=== PATIENT | male | born 1945 | race Two or more races ===

== ENCOUNTER → 2019-02-20 | Outpatient (CLI) | payer MEDICARE ==
--- NOTE | 2019-02-20 10:49 | RAD ---
MR#: [id number] Date of Study: 02/20/2019 Ordering Physician: CANDI BURRELL, Referring Physician: CANDI BURRELL, Tech: Tanisha Onofre RDMS, RVT, RTR APPROVED REPORT Patient Location: OUT-PATIENT Laterality:Bilateral Indications Bruit Grayscale images of the bilateral carotid arteries demonstrate mild soft plaque without any significa nt high-grade stenosis. Spectral waveforms and color Doppler are within normal limits. Overall ICA to CCA ratios are within n ormal limits. No focal obstruction identified. Critical Notification Critical Value: No <Conclusion> No significant bilateral carotid occlusive disease. Signed by : Candi Burrell, Electronically Approved : 02/20/2019 10:49:17
--- NOTE | 2019-02-20 10:50 | RAD ---
MR#: [id number] Date of Study: 02/20/2019 Ordering Physician: CANDI BURRELL, Referring Physician: CANDI BURRELL, Tech: Tanisha Onofre RDMS, RVT, RTR APPROVED REPORT Patient Location: OUT-PATIENT Indications CAD Risk Factors Cardiac Disease Technically limited images but grossly the aorta has mild diffuse atherosclerosis. No significant aneurysmal dilatation is noted. Maximal transverse dimensions are approximately 1.8 cm. Spectral waveforms and color Doppler in the bilateral common iliacs and aorta a is within normal limi ts. Critical Notification Critical Value: No <Conclusion> No significant aortic aneurysm noted. Signed by : Candi Burrell, Electronically Approved : 02/20/2019 10:50:24
--- NOTE | 2019-02-20 11:07 | CARD ---
MR#: [id number] Date of Study: 02/20/2019 Ordering Physician: CANDI BURRELL, Referring Physician: CANDI BURRELL, Tech: Seema Lomeli MISHA APPROVED REPORT EXAM: Two-dimensional and M-mode echocardiogram with Doppler and color Doppler. Other Information Quality : Technically LimitedHR: 70bpm Rhythm : NSRTechnically limited study due to body habitus. INDICATION CAD 2D DIMENSIONS Left Atrium(2D)4.0 (1.6-4.0cm)IVSd1.2 (0.7-1.1cm) Aortic Root(2D)3.6 (2.0-3.7cm)LVDd4.2 (3.9-5.9cm) LVOT Diameter2.3 (1.8-2.4cm)PWd1.1 (0.7-1.1cm) LVDs3.0 (2.5-4.0cm)FS (%) 28.6 % SV44.1 mlLVEF(%)55.5 (>50%) M-Mode DIMENSIONS Left Atrium(MM)3.54 (2.5-4.0cm)Aortic Root3.98 (2.2-3.7cm) Aortic Valve AoV Peak Franklin.120.6cm/sAoV VTI26.0cm AO Peak GR.5.8mmHgLVOT Peak Franklin.94.2cm/s LVOT VTI 23.99cmAO Mean GR.4mmHg JUNAID (VMAX)3.66wh5MJZ (VTI)3.85cm2 Mitral Valve MV E Zclpsstm15.7cm/sMV DECEL RHYR102jm MV A Pbeucari49.3cm/sE/A Ratio0.9 MV A Kpbaqjeq16ov Pulmonary Valve PV Peak Gneoxwro457.8cm/sPV Peak Grad.5mmHg Tricuspid Valve TR P. Fgsfuqwy124up/sRAP YPIRVXUY7csBr TR Peak Gr.03knZwTLLZ81jeLh LEFT VENTRICLE The left ventricle is normal size. There is mild concentric left ventricular hypertrophy. Apical wall appears hypokinetic. The Ejection Fraction is 55-60%. Transmitral Doppler flow pattern is Grade I-ab normal relaxation pattern. RIGHT VENTRICLE The right ventricle is normal size. There is normal right ventricular wall thickness. The right ventr icular systolic function is normal. ATRIA The left atrium is mildly dilated. The right atrium size is normal. The interatrial septum is intact with no evidence for an atrial septal defect or patent foramen ovale as noted on 2-D or Doppler imagi ng. AORTIC VALVE The aortic valve is trileaflet. The aortic valve is mildly calcified. Doppler and Color Flow revealed no significant aortic regurgitation. There is no significant aortic valvular stenosis. There is no a ortic valvular vegetation. MITRAL VALVE Mitral annular calcification is mild. There is no evidence of mitral valve prolapse. There is no mitr al valve stenosis. Doppler and Color-flow revealed trace mitral regurgitation. TRICUSPID VALVE The tricuspid valve is normal in structure and function. Doppler and Color Flow revealed trace tricus pid regurgitation. The PA pressure was estimated at 26 mmHg. There is no tricuspid valve prolapse or vegetation. There is no tricuspid valve stenosis. PULMONIC VALVE The pulmonic valve is not well visualized. GREAT VESSELS The aortic root is mildly enlarged at 3.6cm. The ascending aorta is Mildly dilated at 3.9cm. The IVC is normal in size and collapses >50% with inspiration. PERICARDIAL EFFUSION There is no evidence of significant pericardial effusion. Critical Notification Critical Value: No <Conclusion> Apical wall appears hypokinetic. The Ejection Fraction is 55-60%. Transmitral Doppler flow pattern is Grade I-abnormal relaxation pattern. The left atrium is mildly dilated. Trace mitral regurgitation. Trace tricuspid regurgitation. The PA pressure was estimated at 26 mmHg. There is no evidence of significant pericardial effusion. Signed by : Fernando Carver, Electronically Approved : 02/20/2019 11:07:03
== END | disposition home or self-care (01) ==
LOC: US 08:23
PROVIDERS: ATTEND Internal Medicine Cardiovascular Disease
DX: I08.0 Rheumatic disorders of both mitral and aortic valves (principal); I77.819 Aortic ectasia, unspecified site; I25.10 Atherosclerotic heart disease of native coronary artery without angina pectoris; I70.0 Atherosclerosis of aorta; R09.89 Other specified symptoms and signs involving the circulatory and respiratory systems
CPT/HCPCS: 93306; 93880; 93978

== ENCOUNTER → 2019-12-14 | Outpatient (CLI) | payer MEDICARE ==
[2019-12-14 09:50] LABS: ALBUMIN 3.9 g/dL (3.4-5.0); ALBUMIN/GLOBULIN RATIO 1.1 (1.0-1.7); CALCIUM 9.7 mg/dL (8.5-10.1); CREATININE 1.3 mg/dL (0.7-1.3); GFR 53.7; POTASSIUM 3.9 mmol/L (3.5-5.1); TOTAL BILIRUBIN 0.4 mg/dL (0.2-1.0); TOTAL PROTEIN 7.4 g/dL (6.4-8.2)
[2019-12-14 09:54] LABS: BASO % 0 % (0-3); EOS # 0.5 x10^3/uL (0.0-0.7); EOS % 7 % (0-3); HEMATOCRIT 38.6 % (39.0-53.0); LYMPH # 1.7 x10^3/uL (1.0-4.8); LYMPH % 23 % (24-48); MEAN CORPUSCULAR HEMOGLOBIN 30 pg (25-35); MEAN CORPUSCULAR HGB CONC 34 g/dL (31-37); MEAN CORPUSCULAR VOLUME 88 fL (79-100); MONO # 0.5 x10^3/uL (0.0-1.1); MONO % 6 % (0-9); NEUT # 4.7 x10^3uL (1.8-7.7); NEUT % 64 % (31-73); PLATELET COUNT 241 x10^3/uL (140-400); RED CELL DISTRIBUTION WIDTH 14.1 % (11.5-14.5); WHITE BLOOD COUNT 7.4 x10^3/uL (4.0-11.0)
[2019-12-14 15:00] LABS: THYROID STIM HORMONE (TSH) 2.614 uIU/mL (0.358-3.740)
[2019-12-15 00:06] LABS: HEMOGLOBIN A1C 6.8 % (4.8-5.6)
== END ==
LOC: LAB 08:49
PROVIDERS: ATTEND Family Medicine
DX: E11.9 Type 2 diabetes mellitus without complications (principal); I10 Essential (primary) hypertension; E78.5 Hyperlipidemia, unspecified
CPT/HCPCS: 36415; 80053; 80061; 83036; 84443; 85025

== ENCOUNTER 2020-11-01 08:41 | Observation (INO) | payer MEDICARE ==
[~2020-11-01] VITALS: Ht 172.7 cm; Wt 105.0 kg
--- NOTE | 2020-11-01 08:58 | PHYS DOC ---
Adult General HPI HPI Patient is a 75-year-old male with a known past with a history of diabetes and coronary artery disease status post 2 times coronary artery stents now presents emergency department complaint of new onset of chest pain. Patient states that approximately 4 hours prior to arrival he started having left anterior chest p ain which radiated into the left shoulder left arm without radiation to left neck. Has not been associated with any nausea, vomiting, fever, chills, cough, dizziness or lightheadedness. Denies any noted aggravating alleviating factors. States he took some nitro when he woke up this morning which improved his symptoms but has then returned. Review of Systems Review of Systems Constitutional: Denies fever or chills [] Eyes: Denies change in visual acuity, redness, or eye pain [] HENT: Denies nasal congestion or sore throat [] Respiratory: Denies cough or shortness of breath [] Cardiovascular: No additional information not addressed in HPI [] GI: Denies abdominal pain, nausea, vomiting, bloody stools or diarrhea [] : Denies dysuria or hematuria [] Musculoskeletal: Denies back pain or joint pain [] Integument: Denies rash or skin lesions [] Neurologic: Denies headache, focal weakness or sensory changes [] Endocrine: Denies polyuria or polydipsia [] All other systems were reviewed and found to be within normal limits, except as documented in this note. Physical Exam Physical Exam Constitutional: Well developed, well nourished, no acute distress, non-toxic appearance. [] HENT: Normocephalic, atraumatic, bilateral external ears normal, oropharynx moist, no oral exudates, nose normal. [] Eyes: PERRLA, EOMI, conjunctiva normal, no discharge. [] Neck: Normal range of motion, no tenderness, supple, no stridor. [] Cardiovascular:Heart rate regular rhythm, no murmur [] Lungs & Thorax: Bilateral breath sounds clear to auscultation [] Abdomen: Bowel sounds normal, soft, no tenderness, no masses, no pulsatile masses. [] Skin: Warm, dry, no erythema, no rash. [] Back: No tenderness, no CVA tenderness. [] Extremities: No tenderness, no cyanosis, no clubbing, ROM intact, no edema. [] Neurologic: Alert and oriented X 3, normal motor function, normal sensory function, no focal deficits noted. [] Psychologic: Affect normal, judgement normal, mood normal. [] EKG EKG [] Radiology/Procedures Radiology/Procedures [] Heart Score Risk Factors: Risk Factors: DM, Current or recent (<one month) smoker, HTN, HLP, family history of CAD, obesity. Risk Scores: Risk Factors: DM, Current or recent (<one month) smoker, HTN, HLP, family history of CAD, obesity. Course & Med Decision Making Course & Med Decision Making Pertinent Labs and Imaging studies reviewed. (See chart for details) 75-year-old male presented emergency department with left anterior chest pain which is raise concern for an acute coronary artery syndrome. Differential also includes costochondritis, pneumonia, PE. At this time will obtain an ACS work- up and reevaluate. Initial work-up negative for any acute ischemic pathology. At this time will ad alissa for observation Dragon Disclaimer Dragon Disclaimer This electronic medical record was generated, in whole or in part, using a voice recognition dictation system. Departure Departure: Impression: Primary Impression: Chest pain Disposition: ADMITTED INPT THIS HOSP Condition: GOOD Referrals: LETA DUARTE MD (PCP) RICHY MARCUS MD Nov 01, 2020 08:58
[2020-11-01] MEDS ORDERED: ASPIRIN CHEWABLE 81 MG TABLET. PO ONE (09:00)
--- NOTE | 2020-11-01 09:00 | EKG ---
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
--- NOTE | 2020-11-01 09:14 | RAD ---
EXAMINATION: XR CHEST 1V CLINICAL HISTORY: Chest pain EXAM DATE/TIME: 11/01/2020 8:59 AM COMPARISON: None FINDINGS: Lines, Tubes, and Devices: None. Cardiomediastinal Silhouette: Normal heart size. Lungs and Pleura: Pulmonary hypoexpansion without evidence of focal airspace consolidation or pleural effusion. Pulmonary vasculature unremarkable. Bones and Soft Tissues: Degenerative changes of the thoracic spine. IMPRESSION: No evidence of acute cardiopulmonary abnormality. Electronically signed by: Oleg Singh DO (11/01/2020 9:12 AM) [facility]
[2020-11-01 09:29] LABS: BASO % 1 % (0-3); EOS # 0.6 x10^3/uL (0.0-0.7); EOS % 8 % (0-3); HEMATOCRIT 39.3 % (39.0-53.0); LYMPH # 1.9 x10^3/uL (1.0-4.8); LYMPH % 24 % (24-48); MEAN CORPUSCULAR HEMOGLOBIN 30 pg (25-35); MEAN CORPUSCULAR HGB CONC 33 g/dL (31-37); MEAN CORPUSCULAR VOLUME 90 fL (79-100); MONO # 0.6 x10^3/uL (0.0-1.1); MONO % 7 % (0-9); NEUT # 4.7 x10^3uL (1.8-7.7); NEUT % 60 % (31-73); PLATELET COUNT 233 x10^3/uL (140-400); RED BLOOD COUNT 4.36 x10^6/uL (4.30-5.70); RED CELL DISTRIBUTION WIDTH 13.8 % (11.5-14.5); WHITE BLOOD COUNT 7.8 x10^3/uL (4.0-11.0)
[2020-11-01 09:31] LABS: CALCIUM 9.6 mg/dL (8.5-10.1); CREATININE 1.3 mg/dL (0.7-1.3); GFR 53.5; POTASSIUM 4.3 mmol/L (3.5-5.1)
[2020-11-01 09:44] LABS: ALBUMIN 3.9 g/dL (3.4-5.0); ALBUMIN/GLOBULIN RATIO 1.1 (1.0-1.7); TOTAL BILIRUBIN 0.3 mg/dL (0.2-1.0); TOTAL PROTEIN 7.5 g/dL (6.4-8.2)
[2020-11-01] MEDS ORDERED: ONDANSETRON PF 4 MG/2 ML VIAL. IVP PRN (10:45)
[2020-11-01] MEDS ORDERED: MORPHINE SULFATE 4 MG/ML DISP.SYRIN. IVP PRN (10:45)
[2020-11-01] MEDS ORDERED: CARV3.1230 PO (12:38)
[2020-11-01] MEDS ORDERED: METF10007 PO (12:38)
[2020-11-01] MEDS ORDERED: ATOR20TA PO (12:38)
[2020-11-01] MEDS ORDERED: GLIM4TAB8 PO (12:38)
[2020-11-01] MEDS ORDERED: ASPI-630 PO (12:38)
[2020-11-01 13:00] VITALS: BP 152/80
[2020-11-01] MEDS ORDERED: HEPARIN for IV BOLUS 10,000 UNIT/10 ML VIAL. IV ONE (13:00)
[2020-11-01] MEDS ORDERED: HEPARIN for IV BOLUS 10,000 UNIT/10 ML VIAL. IV PRN (13:00)
[2020-11-01 14:00] VITALS: BP 165/84
--- NOTE | 2020-11-01 14:29 | NUR ---
Patient admitted to ICU Room 5 for chest pain. Patient admitted with all belongings, ambulated from ER stretcher to bed without assistance. Patient's vital signs stable upon admission. Home medications reconciled with Dr. Vallejo over the phone. Dr. Ray called for cardiology consult. Received orders for Heparin drip per protocol and will trend troponin lab values. Will continue to critically monitor patient.
[2020-11-01] MEDS: HEPARIN 25,000UTS/250ML PREMIX 250 ML IV PRN (14:42)
--- NOTE | 2020-11-01 14:50 | NUR ---
Heparin drip started per Cardiovascular protocol. Drip started at 12 units/kg/hr (12.6 mL/hr). Initial PTT 28. Will draw PTT again at 2100 and repeat Q6 hours until stable. Will continue to critically monitor. Initial bolus of 4000 units given per Cardiovascular protocol.
[2020-11-01] MEDS ORDERED: SITA100T PO ×2 (14:53→16:09)
[2020-11-01 15:00] VITALS: BP 165/77
[2020-11-01 16:00] VITALS: BP 146/77
[2020-11-01] MEDS: metFORMIN 500 MG TABLET PO SCH (17:00)
[2020-11-01 19:00] VITALS: BP 144/86
[2020-11-01 23:00] VITALS: BP 135/60
[2020-11-02 03:22] VITALS: BP 136/62
[2020-11-02 06:32] LABS: BASO % 0 % (0-3); EOS # 0.5 x10^3/uL (0.0-0.7); EOS % 7 % (0-3); HEMATOCRIT 36.6 % (39.0-53.0); HEMOGLOBIN 12.1 g/dL (13.0-17.5); LYMPH # 1.8 x10^3/uL (1.0-4.8); LYMPH % 23 % (24-48); MEAN CORPUSCULAR HEMOGLOBIN 30 pg (25-35); MEAN CORPUSCULAR HGB CONC 33 g/dL (31-37); MEAN CORPUSCULAR VOLUME 90 fL (79-100); MONO # 0.5 x10^3/uL (0.0-1.1); MONO % 6 % (0-9); NEUT % 63 % (31-73); PLATELET COUNT 219 x10^3/uL (140-400); RED BLOOD COUNT 4.09 x10^6/uL (4.30-5.70); RED CELL DISTRIBUTION WIDTH 14.1 % (11.5-14.5); WHITE BLOOD COUNT 7.9 x10^3/uL (4.0-11.0)
[2020-11-02 06:45] LABS: CALCIUM 9.1 mg/dL (8.5-10.1); CREATININE 1.3 mg/dL (0.7-1.3); GFR 53.5; POTASSIUM 3.7 mmol/L (3.5-5.1)
[2020-11-02 07:00] VITALS: BP 132/65
[2020-11-02] MEDS: metFORMIN 500 MG TABLET PO SCH (07:46)
[2020-11-02] MEDS: HEPARIN 25,000UTS/250ML PREMIX 250 ML IV PRN (07:47)
[2020-11-02] MEDS ORDERED: CARVEDILOL 3.125 MG TABLET PO SCH (09:00)
[2020-11-02] MEDS ORDERED: ASPIRIN CHEWABLE 81 MG TABLET. PO SCH (09:00)
[2020-11-02] MEDS ORDERED: SITAGLIPTIN PHOSPHATE 100 MG PO SCH (09:00)
[2020-11-02] MEDS ORDERED: ATORVASTATIN CALCIUM 20 MG TABLET PO SCH (09:00)
[2020-11-02] MEDS ORDERED: GLIMEPIRIDE 2 MG TABLET PO SCH (09:00)
--- NOTE | 2020-11-02 09:15 | HP ---
ADMIT DATE: 11/01/2020 ATTENDING PHYSICIAN: Dr. Chisholm. CHIEF COMPLAINT: Chest pain. HISTORY OF PRESENT ILLNESS: The patient is a 75-year-old gentleman admitted through the ED with new onset of nonexertional chest pain 4 hours prior to arrival. He started having left anterior chest wall pain radiating to the left shoulder and left neck. No associated nausea, vomiting, fever or COVID exposure. It was nonexertional. He took a nitroglycerin and it helped. In the ED, the workup was fairly unremarkable. EKG nondiagnostic. Chest x-ray was clear and the first set of cardiac enzymes was negative. He has had a known history of coronary artery disease with 2 coronary stents done at [facility] several years ago. I do not have the exact detail. He is therefore admitted. Dr. Macdonald is his operator maintainer, Dr. Ray has been consulted. He is here for further management as well as evaluation and serial cardiac enzymes. PAST MEDICAL HISTORY: Significant for the known coronary artery disease. He has hypertension. He has obesity and type 2 diabetes. CURRENT MEDICINES: Reviewed. He takes nitroglycerin p.r.n., aspirin, Lipitor, Coreg, glimepiride, metformin and Januvia. ALLERGIES: He has no known drug allergies. SOCIAL HISTORY: He is a nonsmoker, nondrinker. FAMILY HISTORY: Significant for colon cancer and leukemia in his parents. Exact diagnosis unclear. REVIEW OF SYSTEMS: Unremarkable for any COVID exposure, fevers, chills, palpitations. All other systems reviewed and turned to be negative. PHYSICAL EXAMINATION: GENERAL: When I saw him, this is a very pleasant, middle-aged gentleman. INITIAL VITAL SIGNS: In the ED showed a blood pressure of 146/77, pulse 87 and regular. He was afebrile, oxygen saturation 92% on room air. HEENT: Head is without trauma. Pupils are reactive. Sclerae nonicteric. Oropharynx clear. NECK: Supple, no bruits. LUNGS: Clear. CARDIOVASCULAR: Showed regular heart tones. ABDOMEN: Obese, protuberant. No organomegaly. Bowel sounds are normoactive. EXTREMITIES: Show no cyanosis or edema. NEUROLOGIC: Focally intact. Speech is fluent. Metal Drawer intact. SKIN: Warm and dry. PERTINENT LABORATORY STUDIES: Hemoglobin 13.0 g/dL, white count 7800. Nonfasting blood sugar 235. The first cardiac enzymes were negative for coronary ischemia. Sodium was 139 mEq/L, potassium 4.3, creatinine is 1.3 mg/dL. ASSESSMENT: 1. A 75-year-old gentleman with atypical chest pain, coronary ischemia to be ruled out. 2. Known coronary artery disease with 2 previous stents at outside hospital. 3. Type 2 diabetes mellitus. 4. Hypertension. 5. Hyperlipidemia. PLAN: 1. Admit to the Intensive Care Unit. 2. Cardiology consultation, Dr. Macdonald submitted with him. 3. Serial cardiac enzymes. 4. Continue home meds. 5. Glucose control. WINDY CHISHOLM MD DR: BINU/abe JOB#: [id number] / [id number] LETA Humphrey MD
[2020-11-02 10:35] VITALS: BP 139/58
--- NOTE | 2020-11-02 10:36 | NUR ---
Patient discharged from hospital. Orders reviewed and plan of care reviewed. Plan to follow up with Dr. Macdonald on tuesday. Patient stable upon discharge of hospital, placed in wheelchair and bedside RN wheeled patient to front door and placed in personal vehicle. All belongings sent with patient.
--- NOTE | 2020-11-02 11:08 | DS ---
DATE OF DISCHARGE: 11/02/2020 ATTENDING PHYSICIAN: Dr. Chisholm. FINAL DISCHARGE DIAGNOSES: 1. Chest pain, atypical, coronary ischemia ruled out. 2. Known coronary artery disease with 2 previous stents. 3. Type 2 diabetes. 4. Essential hypertension. 5. Hyperlipidemia. HISTORY AND PHYSICAL: This is a pleasant 75-year-old gentleman with coronary artery disease and several risk factors, admitted with nonexertional chest pain 4 hours prior to arrival. He had a fairly negative workup. He was admitted for serial enzymes and Cardiology consultation. Dr. Macdonald is his sprinkler helper. PHYSICAL EXAMINATION: Please see the dictated note. PERTINENT LABORATORY AND X-RAY STUDIES: Admission hemoglobin was 13.0 g/dL, white count 7800. Chemistry panel: BUN and creatinine, electrolytes all within normal range. Nonfasting blood sugar 172. Three sets of cardiac enzymes negative for coronary ischemia. COURSE IN THE HOSPITAL: The patient was admitted. He was monitored. Serial enzymes ruled out coronary ischemia. Home meds were continued. Diet was advanced. He did well. Dr. Walton saw him in consultation; his input is greatly appreciated. He was discharged home the next day with reassurance. He will follow up with his PCP and Dr. Macdonald. Home meds remain unchanged, aspirin 81 mg daily, Lipitor, Coreg 3.125 mg b.i.d., Amaryl, metformin, and Januvia dose is unchanged. He was discharged then from our hospital in stable condition with explicit instructions and followup care. WINDY CHISHOLM MD DR: BINU/abe JOB#: [id number] / [id number] LETA Humphrey MD
--- NOTE | 2020-11-02 12:32 | PDOC2 ---
CONSULT DOS: DATE: 11/02/20 TIME: 12:28 Reason for Consult: Chest pain Referring Physician: Dr. Vallejo Chief Complaint Chest pain Source: Chart review, Patient Problem List Problems Medical Problems: (1) Chest pain Status: Acute History of Present Illness The patient is a 75-year-old male who presented to the emergency room yesterday with episodes of chest discomfort. The patient said the pain started several hours before being seen in the emergency room. It was centered in his left upper chest and left shoulder. His EKG showed no acute ischemic changes. Chest x-ray showed no acute changes. The patient was treated medically overnight and has remained stable. Troponins have been negative x3. Today he denies any chest pain but does report shoulder pain that changes with motion. Cardiovascular: CAD, HTN, hyperipidemia Endocrine: Diabetes Past Surgical History: Other (Coronary stenting.) Family History: Cancer Smoke: No ALCOHOL: none Current Medications Current Medications Aspirin (Aspirin Chewable) 324 mg 1X ONCE PO Last administered on 11/01/20at 09:09; Start 11/01/20 at 09:00; Stop 11/01/20 at 09:27; Status DC Ondansetron HCl (Zofran) 4 mg PRN Q4HRS PRN IVP NAUSEA/VOMITING; Start 11/01/20 at 10:45; Stop 11/02/20 at 10:44; Status DC Morphine Sulfate (Morphine 4mg Syringe) 4 mg PRN Q2HR PRN IVP PAIN; Start 11/01/20 at 10:45; Stop 11/02/20 at 10:44; Status DC Heparin Sodium/ Dextrose 250 ml @ 10 mls/hr CONT PRN IV SEE I/O RECORD Last administered on 11/02/20at 07:47; Start 11/01/20 at 13:00; Stop 11/02/20 at 09:42; Status DC Heparin Sodium (Porcine) (Heparin Sodium) 4,000 unit 1X ONCE IV Last admin istered on 11/01/20at 13:00; Start 11/01/20 at 13:00; Stop 11/02/20 at 09:42; Status DC Heparin Sodium (Porcine) (Heparin Sodium) 2,650 unit PRN Q6HRS PRN IV FOR PTT LESS THAN 24 SECONDS; Start 11/01/20 at 13:00; Stop 11/02/20 at 09:42; Status DC Aspirin (Aspirin Chewable) 81 mg DAILY PO Last administered on 11/02/20at 07:46; Start 11/02/20 at 09:00 Atorvastatin Calcium (Lipitor) 20 mg DAILY PO Last administered on 11/02/20at 07:46; Start 11/02/20 at 09:00 Carvedilol (Coreg) 3.125 mg DAILY PO ; Start 11/02/20 at 09:00 Glimepiride (Amaryl) 4 mg DAILYWBKFT PO Last administered on 11/02/20at 07:46; Start 11/02/20 at 09:00 Metformin HCl (Glucophage) 1,000 mg BIDWMEALS PO Last administered on 11/02/20 07:46; Start 11/01/20 at 17:00 Non-Formulary Medication (Sitagliptin Phosphate (Januvia)) 1 tab DAILY PO Last administered on 11/02/20at 07:48; Start 11/02/20 at 09:00 Active Scripts Active Reported Januvia (Sitagliptin Phosphate) 100 Mg Tablet 1 Tab PO DAILY Aspirin 81 Mg Tab.chew 81 Mg PO DAILY Lipitor (Atorvastatin Calcium) 20 Mg Tablet 1 Tab PO DAILY Carvedilol (Carvedilol) 3.125 Mg Tablet 3.125 Mg PO DAILY Glimepiride 4 Mg Tablet 1 Tab PO DAILY Metformin Hcl 1,000 Mg Tablet 1 Tab PO BID Allergies: Coded Allergies: No Known Drug Allergies (Unverified , 11/01/20) Cardiovascular: yes: Chest Pain General: No acute distress HEENT: Atraumatic Lungs: Clear to auscultation Heart: Regular rate Abdomen: Normal bowel sounds VITALS Vital Signs Date Time Temp Pulse Resp B/P (MAP) Pulse Ox O2 Delivery O2 Flow Rate FiO2 11/02/20 10:35 98.5 64 22 139/58 (85) 95 Room Air 11/02/20 03:22 2.0 Labs Laboratory Tests Test 11/01/20 09:03 11/01/20 12:54 11/01/20 13:30 11/01/20 15:20 White Blood Count 7.8 x10^3/uL (4.0-11.0) Red Blood Count 4.36 x10^6/uL (4.30-5.70) Hemoglobin 13.0 g/dL (13.0-17.5) Hematocrit 39.3 % (39.0-53.0) Mean Corpuscular Volume 90 fL (79-100) Mean Corpuscular Hemoglobin 30 pg (25-35) Mean Corpuscular Hemoglobin Concent 33 g/dL (31-37) Red Cell Distribution Width 13.8 % (11.5-14.5) Platelet Count 233 x10^3/uL (140-400) Neutrophils (%) (Auto) 60 % (31-73) Lymphocytes (%) (Auto) 24 % (24-48) Monocytes (%) (Auto) 7 % (0-9) Eosinophils (%) (Auto) 8 % (0-3) Basophils (%) (Auto) 1 % (0-3) Neutrophils # (Auto) 4.7 x10^3uL (1.8-7.7) Lymphocytes # (Auto) 1.9 x10^3/uL (1.0-4.8) Monocytes # (Auto) 0.6 x10^3/uL (0.0-1.1) Eosinophils # (Auto) 0.6 x10^3/uL (0.0-0.7) Basophils # (Auto) 0.0 x10^3/uL (0.0-0.2) Sodium Level 139 mmol/L (136-145) Potassium Level 4.3 mmol/L (3.5-5.1) Chloride Level 102 mmol/L (98-107) Carbon Dioxide Level 26 mmol/L (21-32) Anion Gap 11 (6-14) Blood Urea Nitrogen 23 mg/dL (8-26) Creatinine 1.3 mg/dL (0.7-1.3) Estimated GFR (Cockcroft-Gault) 53.5 BUN/Creatinine Ratio 18 (6-20) Glucose Level 254 mg/dL (70-99) Calcium Level 9.6 mg/dL (8.5-10.1) Total Bilirubin 0.3 mg/dL (0.2-1.0) Aspartate Amino Transf (AST/SGOT) 24 U/L (15-37) Alanine Aminotransferase (ALT/SGPT) 33 U/L (16-63) Alkaline Phosphatase 76 U/L (46-116) Troponin I Quantitative < 0.017 ng/mL (0-0.055) < 0.017 ng/mL (0-0.055) < 0.017 ng/mL (0-0.055) OC-Qkm-S-Type Natriuretic Peptide 166 pg/mL (0-449) Total Protein 7.5 g/dL (6.4-8.2) Albumin 3.9 g/dL (3.4-5.0) Albumin/Globulin Ratio 1.1 (1.0-1.7) Lipase 768 U/L (73-393) Glucose (Fingerstick) 235 mg/dL (70-99) Prothrombin Time 10.2 SEC (9.4-11.4) Prothromb Time International Ratio 1.0 (0.9-1.1) Activated Partial Thromboplast Time 28 SEC (23-33) Test 11/01/20 19:45 11/02/20 00:10 11/02/20 06:09 Troponin I Quantitative < 0.017 ng/mL (0-0.055) Activated Partial Thromboplast Time 55 SEC (23-33) 58 SEC (23-33) White Blood Count 7.9 x10^3/uL (4.0-11.0) Red Blood Count 4.09 x10^6/uL (4.30-5.70) Hemoglobin 12.1 g/dL (13.0-17.5) Hematocrit 36.6 % (39.0-53.0) Mean Corpuscular Volume 90 fL (79-100) Mean Corpuscular Hemoglobin 30 pg (25-35) Mean Corpuscular Hemoglobin Concent 33 g/dL (31-37) Red Cell Distribution Width 14.1 % (11.5-14.5) Platelet Count 219 x10^3/uL (140-400) Neutrophils (%) (Auto) 63 % (31-73) Lymphocytes (%) (Auto) 23 % (24-48) Monocytes (%) (Auto) 6 % (0-9) Eosinophils (%) (Auto) 7 % (0-3) Basophils (%) (Auto) 0 % (0-3) Neutrophils # (Auto) 5.0 x10^3uL (1.8-7.7) Lymphocytes # (Auto) 1.8 x10^3/uL (1.0-4.8) Monocytes # (Auto) 0.5 x10^3/uL (0.0-1.1) Eosinophils # (Auto) 0.5 x10^3/uL (0.0-0.7) Basophils # (Auto) 0.0 x10^3/uL (0.0-0.2) Sodium Level 140 mmol/L (136-145) Potassium Level 3.7 mmol/L (3.5-5.1) Chloride Level 105 mmol/L (98-107) Carbon Dioxide Level 26 mmol/L (21-32) Anion Gap 9 (6-14) Blood Urea Nitrogen 23 mg/dL (8-26) Creatinine 1.3 mg/dL (0.7-1.3) Estimated GFR (Cockcroft-Gault) 53.5 Glucose Level 172 mg/dL (70-99) Calcium Level 9.1 mg/dL (8.5-10.1) Images EKG shows no acute ischemic changes. Chest x-ray shows no acute processes. Assessment/Plan 1. Chest pain. Patient's pain has greatly improved. On discussion today he states his pain is mainly in his left shoulder. It changes with motion of his left upper extremity. His EKG shows no acute ischemic changes. His chest x-ray is clear. Troponins have been negative x3. He does have a history of previous coronary disease. At this time the patient is clinically stable. We will continue present medications. Would increase his activity and from a cardiac viewpoint the patient may go home later today. We will contact him for office follow-up. 2. Hypertension. Blood pressure is under control. Continue present treatment. 3. Hyperlipidemia. Continue statin. 4. Diabetes mellitus. As per the primary service. Thank you for allowing us to participate in the care of your patient. AYESHA BROWN MD Nov 02, 2020 12:32
== END 2020-11-02 10:45 | disposition home or self-care (01) ==
LOC: ER 08:41 → ICU 10:45
PROVIDERS: ADMIT Hospitalist; ATTEND Hospitalist
DX: R07.89 Other chest pain (principal); I25.9 Chronic ischemic heart disease, unspecified; I25.10 Atherosclerotic heart disease of native coronary artery without angina pectoris; E11.9 Type 2 diabetes mellitus without complications; E66.9 Obesity, unspecified; I10 Essential (primary) hypertension; E78.5 Hyperlipidemia, unspecified; Z79.82 Long term (current) use of aspirin; Z95.5 Presence of coronary angioplasty implant and graft; Z79.899 Other long term (current) drug therapy; Z79.84 Long term (current) use of oral hypoglycemic drugs; Z68.35 Body mass index [BMI] 35.0-35.9, adult
CPT/HCPCS: 36415; 71045; 80048; 80053; 82947; 83690; 83880; 84484; 85025; 85610; 85730; 93005; 96365; 96366; 96376; 99285; G0378; J1644; G0379

== ENCOUNTER → 2021-01-13 | Outpatient (CLI) | payer MEDICARE ==
[~2021-01-13] MED LIST: ASPI-630 PO; ATOR20TA PO; CARV3.1230 PO; GLIM4TAB8 PO; METF10007 PO; REGADENOSON 0.4 MG/5 ML DISP.SYRIN. IV ONE; SITA100T PO
--- NOTE | 2021-01-13 18:10 | RAD ---
MR#: [id number] Date of Study: 01/13/2021 Ordering Physician: CANDI BURRELL, Referring Physician: YONIS HUNG Tech: RT Aashish (R) (N) APPROVED REPORT Test Type: Pharmacological Stress Nurse/Tech: RT Aashish (R) (N)/Miguel Posadas Test Indications: CAD Cardiac History: See Electronic Medical Record Resting Heart Rate: 67 bpm Resting Blood Pressure: 149/60mmHg Pretest Chest Pain: None Pharm. Details Pharmacologic stress testing was performed using 0.4mg per 5ml of regadenoson given intravenously ove r 7-10 seconds. Stress Symptoms Dyspnea POST EXERCISE Reason for Termination: Infusion complete Max HR: 87 bpm Max Blood Pressure: 144/54mmHg Blood Pressure response to exercise: Normal blood pressure response during stress. Heart Rate response to exercise: Normal Chest Pain: No. Arrhythmia: No. ST Change: No. INTERPRETATION Stress EKG Conclusion: The resting EKG shows a sinus rhythm with mild nonspecific ST-T wave changes a nd a Q wave in lead III. The stress EKG shows no significant changes from baseline. Abnormal resting EKG but no EKG evidence of stress-induced ischemia. Imaging Protocol IMAGE PROTOCOL: Rest Tc-99m/stress Tc-99m 1 day Rest: Stress: Viability: Radiopharm.Tc99m [id number] Sestamibi Edqb46cEx 33mCi Duration 15min. 15min. Img Date 01/13/2021 01/13/2021 Inj-Img [id number]. 60min. Rest Admin Site:IV - Right AntecubitalAdministrator: RT Aashish (R)(N) Stress Admin Site: IV - Right AntecubitalAdministrator: RT Aashish (Megha)(N) STRESS DATA End Diast. Vol.112.0mlAv. Heart Rate74.0bpm End Syst. Vol.41.0mlCO Index BSA0.0L/min Myocardial Tlsk418.0gEject. Xyullrea29.0% Stress Rates Pk. Fill Rate2.76EDV/secLVtime Pk. Fill 210.91msec Pk. Empty Rate3.24ESV/secLVtime Pk. Sjkxx717.99msec / Pk. Fill0.87EDV/sec Stress Scores Regional WT0.00Summed WT1.00 Regional WM0.00Summed WM5.00 LV Perfusion The stress scans show an apical defect. The rest scans show an apical defect. Nuclear imaging shows a fixed apical defect consistent with a prior infarction. Wall Motion Left ventricular systolic function is 63% with mild apical hypokinesis and a TID of 1.18. LV Perf. Quant 17 Seg. SSS11.00 17 Seg. SRS7.00 17 Seg. SDS6.00 Stress Defect Extent (% LAD)43.10Rest Defect Extent (% LAD)36.90Rev. Defect Extent (% LAD)22.50 Stress Defect Extent (% LCX) 26.30Rest Defect Extent (% LCX)11.30Rev. Defect Extent (% LCX)23.80 Stress Defect Extent (% RCA)0.00Rest Defect Extent (% RCA)0.00Rev. Defect Extent (% RCA)0.00 Stress Defect Extent (% KONG)28.30Rest Defect Extent (% KONG)20.70Rev. Defect Extent (% KONG)18.50 Conclusion 1. Mildly abnormal resting EKG but no EKG evidence of stress-induced ischemia. 2. Nuclear imaging shows a fixed apical defect consistent with a prior infarct. 3. Left ventricular systolic function shows an ejection fraction of 63% with mild apical hypokinesis and a TID of 1.18. 4. Moderate to moderately low risk Lexiscan stress test consistent with a prior apical infarct but ov erall intact LV systolic function. Signed by : Abdoulaye Walton MD Electronically Approved : 01/13/2021 18:10:23
== END ==
LOC: NM 07:57
PROVIDERS: ATTEND Internal Medicine Cardiovascular Disease
DX: I25.10 Atherosclerotic heart disease of native coronary artery without angina pectoris (principal)
CPT/HCPCS: 78452; 93017; A9500; J2785